=== PATIENT | male | born 1955 | race Caucasian/White ===

== ENCOUNTER 2017-07-18 14:45 | Emergency (ER) | payer OTHER ==
[~2017-07-18] VITALS: Ht 198.1 cm; Wt 90.7 kg
[~2017-07-18 14:45] MED LIST: IBUP800 PO; OXYACE5T PO; PROM25 PO; Percocet 10-321 EACH PO; Percocet 5-3251 EACH PO
[2017-07-18] MEDS ORDERED: THERAPEUTIC-M1 EAC3 PO (14:55)
[2017-07-18] MEDS ORDERED: Norco 5-325 Ta1 EACH PO (15:59)
== END 2017-07-18 16:06 | disposition home or self-care (01) ==
LOC: ER 14:45
DX: S70.11XA Contusion of right thigh, initial encounter (principal); Z88.1 Allergy status to other antibiotic agents; Z88.0 Allergy status to penicillin; F17.200 Nicotine dependence, unspecified, uncomplicated; W55.12XA Struck by horse, initial encounter
CPT/HCPCS: 73502; 73552; 99283

== ENCOUNTER 2017-08-03 11:30 | Emergency (ER) | payer OTHER ==
[~2017-08-03] VITALS: Ht 190.5 cm; Wt 90.7 kg
[~2017-08-03 11:30] MED LIST changes: +Norco 5-325 Ta1 EACH PO; +THERAPEUTIC-M1 EAC3 PO
[2017-08-03] MEDS ORDERED: CIPRO500 MG PO (13:05)
[2017-08-03] MEDS ORDERED: Norco 5-325 Ta1 EACH PO (13:05)
[2017-08-03] MEDS ORDERED: Crutch1 EACH MISC (13:05)
== END 2017-08-03 13:15 | disposition home or self-care (01) ==
LOC: ER 11:30
DX: M79.671 Pain in right foot (principal); Z88.0 Allergy status to penicillin; Z88.8 Allergy status to other drugs, medicaments and biological substances; F17.200 Nicotine dependence, unspecified, uncomplicated
CPT/HCPCS: 73630; 99283

== ENCOUNTER 2017-08-12 10:33 | Emergency (ER) | payer OTHER ==
[~2017-08-12] VITALS: Ht 190.5 cm; Wt 90.7 kg
[~2017-08-12 10:33] MED LIST changes: +CIPRO500 MG PO; +Crutch1 EACH MISC
[2017-08-12] MEDS ORDERED: Prednisone20 MG PO (11:47)
[2017-08-12] MEDS ORDERED: TIOT18 INH (11:47)
[2017-08-12] MEDS ORDERED: BENZ100A PO (11:47)
[2017-08-12] MEDS ORDERED: Flonase 0.05% N16 GM (11:47)
== END 2017-08-12 11:57 | disposition home or self-care (01) ==
LOC: ER 10:33
DX: R05 Cough (principal); Z88.0 Allergy status to penicillin; Z88.8 Allergy status to other drugs, medicaments and biological substances; Z79.2 Long term (current) use of antibiotics; F17.290 Nicotine dependence, other tobacco product, uncomplicated
CPT/HCPCS: 71046; 94640; 99283

== ENCOUNTER 2017-11-26 16:46 | Emergency (ER) | payer OTHER ==
[~2017-11-26] VITALS: Ht 188 cm; Wt 90.7 kg
[~2017-11-26 16:46] MED LIST changes: +BENZ100A PO; +Flonase 0.05% N16 GM; +Prednisone20 MG PO; +TIOT18 INH
[2017-11-26] MEDS ORDERED: Keflex500 MG PO (18:11)
[2017-11-26] MEDS ORDERED: Bactrim Ds Tab1 EACH PO (18:11)
== END 2017-11-26 18:25 | disposition home or self-care (01) ==
LOC: ER 16:46
DX: L03.114 Cellulitis of left upper limb (principal); L03.113 Cellulitis of right upper limb; F17.200 Nicotine dependence, unspecified, uncomplicated; Z88.1 Allergy status to other antibiotic agents; Z88.0 Allergy status to penicillin; Z79.899 Other long term (current) drug therapy
CPT/HCPCS: 99282

== ENCOUNTER 2018-06-07 13:50 | Emergency (ER) | payer OTHER ==
[~2018-06-07] VITALS: Ht 188 cm; Wt 93.0 kg
[~2018-06-07 13:50] MED LIST changes: +Bactrim Ds Tab1 EACH PO; +Keflex500 MG PO
[2018-06-07 14:43] LABS: BASOPHILS ABSOLUTE AUTO 0.03 K/mm3 (0.00-0.23); BASOPHILS PERCENT AUTO 1 % (0-2); EOSINOPHILS ABSOLUTE AUTO 0.13 K/mm3 (0.00-0.68); EOSINOPHILS PERCENT AUTO 2 % (0-6); Hematocrit 40.1 % (37.0-53.0); Hemoglobin 13.2 g/dL (13.5-17.5); IMMATURE GRAN ABSOLUTE AUTO 0.01 K/mm3 (0.00-0.10); IMMATURE GRAN PERCENT AUTO 0 % (0-1); LYMPHOCYTES ABSOLUTE AUTO 0.97 K/mm3 (0.84-5.20); LYMPHOCYTES PERCENT AUTO 17 % (21-46); MONOCYTES ABSOLUTE AUTO 0.61 K/mm3 (0.16-1.47); MONOCYTES PERCENT AUTO 11 % (4-13); Mean Corpuscular HGB 28.8 pg (26.0-34.0); Mean Corpuscular HGB Conc 32.9 g/dL (31.5-36.5); Mean Corpuscular Volume 87 fL (80-100); Mean Platelet Volume 8.9 fL (9.1-12.4); NEUTROPHILS ABSOLUTE AUTO 3.98 K/mm3 (1.96-9.15); NEUTROPHILS PERCENT AUTO 70 % (41-73); Platelet Count 257 K/mm3 (150-400); RDW Coefficient Variation 13.9 % (11.7-14.2); RDW Standard Deviation 44.7 fL (35.1-46.3); Red Blood Cell Count 4.59 M/mm3 (4.30-5.90); White Blood Cell Count 5.73 K/mm3 (4.00-11.30)
[2018-06-07 14:53] LABS: Alanine Aminotransfer (ALT/SGP 18 U/L (12-78); Albumin, Blood 3.5 g/dL (3.4-5.0); Albumin/Globulin Ratio 1.1 (0.8-1.8); Alk Phos 56 U/L (50-136); Anion Gap 8 mmol/L (6-16); Aspartate Aminotrans (AST/SGOT 16 U/L (12-37); Bilirubin, Total 0.5 mg/dL (0.1-1.0); Blood Urea Nitrogen 15 mg/dL (8-24); Bun/Creatinine Ratio 18.4 (12.0-20.0); CO2, Blood 25 mmol/L (21-32); Calcium, Blood 8.3 mg/dL (8.5-10.1); Chloride, Blood 108 mmol/L (98-108); Creatinine, Blood 0.82 mg/dL (0.60-1.20); Globulin, Blood 3.2 g/dL (2.2-4.0); Glomerular Filtration Rate >60 (60-); Glucose, Blood 105 mg/dL (70-99); Potassium, Blood 3.6 mmol/L (3.5-5.5); Sodium, Blood 141 mmol/L (136-145); Total Protein, Blood 6.7 g/dL (6.4-8.2); Troponin I <0.015 ng/mL (0.000-0.040)
[2018-06-07 15:03] LABS: Influenza A Negative (NEGATIVE); Influenza B Negative (NEGATIVE)
[2018-06-07] MEDS ORDERED: Norco 5-325 Ta1 EACH PO (15:41)
== END 2018-06-07 15:50 | disposition home or self-care (01) ==
LOC: ER 13:50
PROVIDERS: Physician Assistant
DX: B09 Unspecified viral infection characterized by skin and mucous membrane lesions (principal); F17.210 Nicotine dependence, cigarettes, uncomplicated
CPT/HCPCS: 71046; 80053; 84484; 85025; 87804; 93005; 93010; 99284-25

== ENCOUNTER → 2018-06-30 | Outpatient (CLI) | payer OTHER ==
[2018-06-30 15:15] LABS: CHOL/HDL RATIO 4.3; Cholesterol 230 mg/dL (50-200); HDL Cholesterol 53 mg/dL (>39); LDL/HDL RATIO 3.1; Low Density Lipoprotein Chol 165 mg/dL (0-110); Triglycerides 59 mg/dL (30-160); Very Low Density Lipoprot Chol 11 mg/dL (6-32)
== END | disposition home or self-care (01) ==
LOC: LAB SHORT 14:51 → LAB 14:51
PROVIDERS: Physician Assistant
DX: E78.5 Hyperlipidemia, unspecified (principal)
CPT/HCPCS: 80061

== ENCOUNTER 2018-08-01 12:58 | Day surgery (SDC) | payer MEDICAID ==
[~2018-08-01 12:58] MED LIST changes: +Cleocin HCl150 MG PO; +Monodox100 MG PO
--- NOTE | 2018-08-01 20:03 | NUR ---
PT VERBALIZES UNDERSTANDING TO FOLLOW UP WITH INFUSION IN ER TONIGHT.
[2018-08-02] MEDS ORDERED: THERA1 EACH PO (08:17)
[2018-08-02] MEDS ORDERED: ATOR10 PO (08:17)
[2018-08-02] MEDS ORDERED: Cleocin HCl300 MG PO (23:46)
== END 2018-08-01 22:54 | disposition home or self-care (01) ==
LOC: ATC 12:58
DX: L03.90 Cellulitis, unspecified (principal)

== ENCOUNTER 2018-08-01 22:46 | Emergency (ER) | payer MEDICAID ==
[~2018-08-01] VITALS: Ht 188 cm; Wt 93.0 kg
[2018-08-02] MEDS ORDERED: THERA1 EACH PO (08:17)
[2018-08-02] MEDS ORDERED: ATOR10 PO (08:17)
[2018-08-02] MEDS ORDERED: Cleocin HCl300 MG PO (23:46)
== END 2018-08-02 | disposition home or self-care (01) ==
LOC: ER 22:46
DX: L03.116 Cellulitis of left lower limb (principal); Z88.0 Allergy status to penicillin; Z88.8 Allergy status to other drugs, medicaments and biological substances

== ENCOUNTER 2018-08-02 07:43 | Day surgery (SDC) | payer MEDICAID ==
[2018-08-02] MEDS ORDERED: ATOR10 PO (08:17)
[2018-08-02] MEDS ORDERED: THERA1 EACH PO (08:17)
--- NOTE | 2018-08-02 15:56 | NUR ---
IV FLUSHES WELL, 2X2 GAUZE UNDER END CAPS/CLAMP AND OVER SITE AND WRAPPED LIGHTLY IN COBAN TO MAINTAIN PATENCY OF SITE. END CAPS X2 PLACED. PT VERBALIZES UNDERSTANDING TO GO TO [facility]
[2018-08-02] MEDS ORDERED: Cleocin HCl300 MG PO (23:46)
== END 2018-08-02 22:39 | disposition home or self-care (01) ==
LOC: ATC 07:43
DX: L03.90 Cellulitis, unspecified (principal)

== ENCOUNTER 2018-08-02 23:02 | Emergency (ER) | payer OTHER ==
[~2018-08-02] VITALS: Ht 188 cm; Wt 93.0 kg
[~2018-08-02 23:02] MED LIST changes: +ATOR10 PO; +THERA1 EACH PO
[2018-08-02] MEDS ORDERED: Cleocin HCl300 MG PO (23:46)
== END 2018-08-03 00:10 | disposition home or self-care (01) ==
LOC: ER 23:02
DX: L03.116 Cellulitis of left lower limb (principal); F17.200 Nicotine dependence, unspecified, uncomplicated; Z88.1 Allergy status to other antibiotic agents; Z88.0 Allergy status to penicillin; Z79.899 Other long term (current) drug therapy
CPT/HCPCS: 96365; 99281-25

== ENCOUNTER 2018-08-03 00:24 | Day surgery (SDC) | payer OTHER ==
[~2018-08-03 00:24] MED LIST changes: +Cleocin HCl300 MG PO
== END 2018-08-03 16:20 | disposition home or self-care (01) ==
LOC: ATC 00:24
DX: L03.90 Cellulitis, unspecified (principal)
CPT/HCPCS: 96365

== ENCOUNTER 2018-08-03 22:51 | Emergency (ER) | payer OTHER ==
[~2018-08-03] VITALS: Ht 188 cm; Wt 93.2 kg
== END 2018-08-03 23:59 | disposition home or self-care (01) ==
LOC: ER 22:51
DX: L03.116 Cellulitis of left lower limb (principal); F17.290 Nicotine dependence, other tobacco product, uncomplicated; Z88.0 Allergy status to penicillin; Z88.8 Allergy status to other drugs, medicaments and biological substances; Z79.899 Other long term (current) drug therapy
CPT/HCPCS: 96365; 99281-25

== ENCOUNTER 2018-08-04 00:08 | Day surgery (SDC) | payer OTHER | END 2018-08-04 08:31 | disposition home or self-care (01) | LOC: ATC 00:08 | DX: L03.90 Cellulitis, unspecified (principal) | CPT/HCPCS: 96365 ==

== ENCOUNTER 2018-10-05 07:00 | Day surgery (SDC) | payer OTHER ==
[~2018-10-05] VITALS: Ht 188 cm; Wt 91.0 kg
--- NOTE | 2018-10-05 07:35 | NUR ---
Ambulatory in Day Surgery. Patient states colon prep results clear. History, Chart, Medications and Allergies reviewed before start of procedure. Lungs clear T/O to Auscultation. Patient confirms NPO status and agrees with scheduled surgery. Pre-Op teaching done. Pt verbalizes understanding. Patient States Post-Procedure ride home has been arranged.
--- NOTE | 2018-10-05 08:00 | NUR ---
10/05/18 0800 Fidle San History, Chart, Medications and Allergies reviewed before start of procedure.MONITOR INTACT WITH CONTINUOUS PULSE OXIMETRY AND INTERMITTENT BP.3-LEAD EKG REVIEWED WITH PHYSICIAN PRIOR TO START OF PROCEDURE.O2 VIA N/C INTACT THROUGHOUT SEDATION/PROCEDURE. Patient confirms NPO status and agrees with scheduled surgery.PATIENT DETERMINED TO BE ASA APPROPRIATE FOR PROPOFOL SEDATION PRIOR TO START OF PROCEDURE BY DR. BEEBE.
--- NOTE | 2018-10-05 08:43 | NUR ---
REPORT GIVEN TO ADRIANNE MACKENZIE.
--- NOTE | 2018-10-05 09:07 | NUR ---
Patient up to Ambulate independently. Gait steady. Discharge instructions reviewed with patient. Patient verbalizes understanding. Copy given to patient to take home. Patient States Post-Procedure ride home has been arranged. Discharged via wheelchair to private car for ride home. ALL BELONGINGS RETUNED TO PATIENT.
== END 2018-10-05 23:03 | disposition home or self-care (01) ==
LOC: ORSCMMR 07:00 → ORD 08:00 → ORSCMMR 23:03
PROVIDERS: Internal Medicine Gastroenterology
PROC: 0DBN8ZX Excision of Sigmoid Colon, Via Natural or Artificial Opening Endoscopic, Diagnostic (ICD-10-PCS; principal; 2018-10-05 08:00)
DX: Z12.11 Encounter for screening for malignant neoplasm of colon (principal); K63.5 Polyp of colon; D12.5 Benign neoplasm of sigmoid colon; E78.00 Pure hypercholesterolemia, unspecified; F17.210 Nicotine dependence, cigarettes, uncomplicated; Z79.899 Other long term (current) drug therapy
CPT/HCPCS: 88305; J2704; J7120

== ENCOUNTER 2018-12-10 18:23 | Emergency (ER) | payer OTHER ==
[~2018-12-10] VITALS: Ht 188 cm; Wt 90.7 kg
== END 2018-12-10 20:00 | disposition home or self-care (01) ==
LOC: ER 18:23
DX: S83.91XA Sprain of unspecified site of right knee, initial encounter (principal); S93.601A Unspecified sprain of right foot, initial encounter; F17.210 Nicotine dependence, cigarettes, uncomplicated; Z88.0 Allergy status to penicillin; Z88.8 Allergy status to other drugs, medicaments and biological substances; Z79.899 Other long term (current) drug therapy; X58.XXXA Exposure to other specified factors, initial encounter
CPT/HCPCS: 73562-RT; 73620; 99283-25

== ENCOUNTER 2018-12-15 11:27 | Emergency (ER) | payer OTHER ==
[~2018-12-15] VITALS: Ht 188 cm; Wt 90.7 kg
[2018-12-15 11:50] LABS: BASOPHILS ABSOLUTE AUTO 0.06 K/mm3 (0.00-0.23); BASOPHILS PERCENT AUTO 1 % (0-2); EOSINOPHILS ABSOLUTE AUTO 0.13 K/mm3 (0.00-0.68); EOSINOPHILS PERCENT AUTO 2 % (0-6); Hematocrit 40.4 % (37.0-53.0); Hemoglobin 13.6 g/dL (13.5-17.5); IMMATURE GRAN ABSOLUTE AUTO 0.03 K/mm3 (0.00-0.10); IMMATURE GRAN PERCENT AUTO 0 % (0-1); LYMPHOCYTES ABSOLUTE AUTO 2.15 K/mm3 (0.84-5.20); LYMPHOCYTES PERCENT AUTO 25 % (21-46); MONOCYTES ABSOLUTE AUTO 0.64 K/mm3 (0.16-1.47); MONOCYTES PERCENT AUTO 7 % (4-13); Mean Corpuscular HGB 29.2 pg (26.0-34.0); Mean Corpuscular HGB Conc 33.7 g/dL (31.5-36.5); Mean Corpuscular Volume 87 fL (80-100); Mean Platelet Volume 8.9 fL (9.1-12.4); NEUTROPHILS ABSOLUTE AUTO 5.64 K/mm3 (1.96-9.15); NEUTROPHILS PERCENT AUTO 65 % (41-73); Platelet Count 323 K/mm3 (150-400); RDW Coefficient Variation 13.9 % (11.7-14.2); RDW Standard Deviation 44.1 fL (35.1-46.3); Red Blood Cell Count 4.65 M/mm3 (4.30-5.90); White Blood Cell Count 8.65 K/mm3 (4.00-11.30)
[2018-12-15 12:05] LABS: Alanine Aminotransfer (ALT/SGP 23 U/L (12-78); Albumin, Blood 3.8 g/dL (3.4-5.0); Albumin/Globulin Ratio 1.1 (0.8-1.8); Alk Phos 72 U/L (50-136); Anion Gap 4 mmol/L (6-16); Aspartate Aminotrans (AST/SGOT 11 U/L (12-37); Bilirubin, Total 0.6 mg/dL (0.1-1.0); Blood Urea Nitrogen 13 mg/dL (8-24); Bun/Creatinine Ratio 18.1 (12.0-20.0); CO2, Blood 28 mmol/L (21-32); Calcium, Blood 8.7 mg/dL (8.5-10.1); Chloride, Blood 109 mmol/L (98-108); Creatinine, Blood 0.72 mg/dL (0.60-1.20); Globulin, Blood 3.6 g/dL (2.2-4.0); Glomerular Filtration Rate >60 (60-); Glucose, Blood 96 mg/dL (70-99); Potassium, Blood 4.1 mmol/L (3.5-5.5); Sodium, Blood 141 mmol/L (136-145); Total Protein, Blood 7.4 g/dL (6.4-8.2); Troponin I <0.015 ng/mL (0.000-0.040)
== END 2018-12-15 13:34 | disposition home or self-care (01) ==
LOC: ER 11:27
PROVIDERS: Emergency Medicine
DX: R07.9 Chest pain, unspecified (principal); R51 Headache; R47.81 Slurred speech; F17.290 Nicotine dependence, other tobacco product, uncomplicated; Z88.0 Allergy status to penicillin; Z88.8 Allergy status to other drugs, medicaments and biological substances; Z79.899 Other long term (current) drug therapy
CPT/HCPCS: 36415; 70450; 71046; 80053; 83690; 83880; 84484; 85025; 93005; 93010; 99284-25

== ENCOUNTER → 2020-03-29 | Outpatient (CLI) | payer OTHER ==
[2020-03-29 14:15] LABS: CHOL/HDL RATIO 3.6; Cholesterol 218 mg/dL (50-200); HDL Cholesterol 60 mg/dL (>39); LDL/HDL RATIO 2.4; Low Density Lipoprotein Chol 145 mg/dL (0-110); Triglycerides 63 mg/dL (30-160); Very Low Density Lipoprot Chol 12 mg/dL (6-32)
== END | disposition home or self-care (01) ==
LOC: LAB SHORT 09:20 → LAB 09:20
PROVIDERS: Family Medicine
DX: E78.5 Hyperlipidemia, unspecified (principal)
CPT/HCPCS: 80061

== ENCOUNTER 2021-02-20 18:15 | Emergency (ER) | payer OTHER ==
[~2021-02-20] VITALS: Ht 190.5 cm; Wt 99.8 kg
[2021-02-20] MEDS ORDERED: CEPH500 PO (19:52)
== END 2021-02-20 20:06 | disposition home or self-care (01) ==
LOC: ER 18:15
DX: S61.532A Puncture wound without foreign body of left wrist, initial encounter (principal); F17.210 Nicotine dependence, cigarettes, uncomplicated; Z23 Encounter for immunization; Z88.0 Allergy status to penicillin; Z88.1 Allergy status to other antibiotic agents; W01.119A Fall on same level from slipping, tripping and stumbling with subsequent striking against unspecified sharp object, initial encounter
CPT/HCPCS: 73110; 90471; 90714; 96372; 99283-25; J1885

== ENCOUNTER 2022-04-23 19:08 | Emergency (ER) | payer BC, OTHER ==
[~2022-04-23] VITALS: Ht 188 cm; Wt 97.5 kg
[~2022-04-23 19:08] MED LIST changes: +CEPH500 PO
[2022-04-23 20:01] LABS: BASOPHILS ABSOLUTE AUTO 0.07 K/mm3 (0.00-0.23); BASOPHILS PERCENT AUTO 1 % (0-2); EOSINOPHILS ABSOLUTE AUTO 0.21 K/mm3 (0.00-0.68); EOSINOPHILS PERCENT AUTO 3 % (0-6); Hematocrit 36.6 % (37.0-53.0); Hemoglobin 12.8 g/dL (13.5-17.5); IMMATURE GRAN ABSOLUTE AUTO 0.02 K/mm3 (0.00-0.10); IMMATURE GRAN PERCENT AUTO 0 % (0-1); LYMPHOCYTES ABSOLUTE AUTO 2.92 K/mm3 (0.84-5.20); LYMPHOCYTES PERCENT AUTO 37 % (21-46); MONOCYTES ABSOLUTE AUTO 0.92 K/mm3 (0.16-1.47); MONOCYTES PERCENT AUTO 12 % (4-13); Mean Corpuscular HGB 29.9 pg (26.0-34.0); Mean Corpuscular Volume 86 fL (80-100); Mean Platelet Volume 8.8 fL (9.1-12.4); NEUTROPHILS ABSOLUTE AUTO 3.77 K/mm3 (1.96-9.15); NEUTROPHILS PERCENT AUTO 48 % (41-73); Platelet Count 283 K/mm3 (150-400); RDW Coefficient Variation 13.9 % (11.7-14.2); RDW Standard Deviation 43.1 fL (35.1-46.3); Red Blood Cell Count 4.28 M/mm3 (4.30-5.90); White Blood Cell Count 7.91 K/mm3 (4.00-11.30)
[2022-04-23 20:24] LABS: Albumin, Blood 3.8 g/dL (3.4-5.0); Albumin/Globulin Ratio 1.2 (0.8-1.8); Bilirubin, Total 0.2 mg/dL (0.1-1.0); Bun/Creatinine Ratio 19.9 (12.0-20.0); Calcium, Blood 9.2 mg/dL (8.5-10.1); Creatinine, Blood 0.85 mg/dL (0.60-1.20); Globulin, Blood 3.1 g/dL (2.2-4.0); Total Protein, Blood 6.9 g/dL (6.4-8.2)
[2022-04-23 21:05] LABS: Source, Urine Clean Catch
[2022-04-23 21:10] LABS: Appearance, Urine Clear (Clear); Bilirubin, Urine Neg (Neg); Blood, Urine Neg (Neg); Color, Urine Yellow (P-Yellow); Glucose Qualitative, Urine Neg (Neg); Ketones, Urine Neg (Neg); Leukocyte Esterase, Urine Neg (Neg); Nitrite, Urine Neg (Neg); Protein, Urine Neg (Neg); Specific Gravity, Urine 1.015 (1.003-1.022); Urobilinogen, Urine NORM (Normal)
== END 2022-04-24 01:59 | disposition home or self-care (01) ==
LOC: ER 19:08
PROVIDERS: Student in an Organized Health Care Education/Training Program
DX: K40.90 Unilateral inguinal hernia, without obstruction or gangrene, not specified as recurrent (principal); F17.210 Nicotine dependence, cigarettes, uncomplicated; Z88.1 Allergy status to other antibiotic agents; Z88.0 Allergy status to penicillin; Z79.899 Other long term (current) drug therapy
CPT/HCPCS: 36415; 74177; 80053; 81003; 85025; Q9967

== ENCOUNTER → 2022-07-16 | Outpatient (CLI) | payer BC, OTHER ==
[~2022-07-16] MED LIST changes: +ASPI81CH PO; +Budeprion Xl300 MG PO; +COMBIVENT RESPIM4 G1 INH; +EZET10 PO; +FISH OIL 1,2001 EAC7 PO; +MELO7.5 PO; +MULVITA PO; +PSYLLIUM FIBER0.4 GM PO; +ZOCOR20 MG PO
[2022-07-16 12:35] LABS: BASOPHILS ABSOLUTE AUTO 0.05 K/mm3 (0.00-0.23); BASOPHILS PERCENT AUTO 0 % (0-2); EOSINOPHILS ABSOLUTE AUTO 0.07 K/mm3 (0.00-0.68); EOSINOPHILS PERCENT AUTO 1 % (0-6); Hematocrit 43.9 % (37.0-53.0); Hemoglobin 14.9 g/dL (13.5-17.5); IMMATURE GRAN ABSOLUTE AUTO 0.05 K/mm3 (0.00-0.10); IMMATURE GRAN PERCENT AUTO 0 % (0-1); LYMPHOCYTES ABSOLUTE AUTO 1.94 K/mm3 (0.84-5.20); LYMPHOCYTES PERCENT AUTO 17 % (21-46); MONOCYTES ABSOLUTE AUTO 1.12 K/mm3 (0.16-1.47); MONOCYTES PERCENT AUTO 10 % (4-13); Mean Corpuscular HGB 29.2 pg (26.0-34.0); Mean Corpuscular HGB Conc 33.9 g/dL (31.5-36.5); Mean Corpuscular Volume 86 fL (80-100); Mean Platelet Volume 8.9 fL (9.1-12.4); NEUTROPHILS ABSOLUTE AUTO 8.25 K/mm3 (1.96-9.15); NEUTROPHILS PERCENT AUTO 72 % (41-73); Platelet Count 344 K/mm3 (150-400); RDW Coefficient Variation 13.1 % (11.7-14.2); RDW Standard Deviation 41.1 fL (35.1-46.3); Red Blood Cell Count 5.11 M/mm3 (4.30-5.90); White Blood Cell Count 11.48 K/mm3 (4.00-11.30)
[2022-07-16 12:41] LABS: Bun/Creatinine Ratio 22.4 (12.0-20.0); Calcium, Blood 9.2 mg/dL (8.5-10.1); Creatinine, Blood 0.85 mg/dL (0.60-1.20); Potassium, Blood 4.4 mmol/L (3.5-5.5)
== END | disposition home or self-care (01) ==
LOC: LAB SHORT 11:11 → LAB 11:11
PROVIDERS: Surgery
DX: Z01.812 Encounter for preprocedural laboratory examination (principal)
CPT/HCPCS: 36415; 80048; 85025

== ENCOUNTER 2022-07-19 05:53 | Day surgery (SDC) | payer BC, OTHER ==
[~2022-07-19] VITALS: Ht 188 cm; Wt 94.2 kg
--- NOTE | 2022-07-19 11:05 | NUR ---
DISCHARGE NOTE PT A&OX4, VSS, NO CONCERNS. Discharge instructions reviewed with patient. Patient verbalizes understanding. Copy given to patient to take home. Dressing to procedure site clean, dry, intact with no visible drainage, swelling, erythema or bruising noted. Discharged via wheelchair to private car for ride home.
--- NOTE | 2022-07-23 09:06 | NUR ---
07/23/22 0906 Zora Hubbard VERIFICATIONS: EDIT CHART.
== END 2022-07-19 11:09 | disposition home or self-care (01) ==
LOC: ORSCMMR 05:53 → ORD 07:30 → ORSCMMR 11:09
PROVIDERS: Surgery
PROC: 0YU54JZ Supplement Right Inguinal Region with Synthetic Substitute, Percutaneous Endoscopic Approach (ICD-10-PCS; principal; 2022-07-19 07:30)
PROC: 3E0M45Z Introduction of Adhesion Barrier into Peritoneal Cavity, Percutaneous Endoscopic Approach (ICD-10-PCS; principal; 2022-07-19 07:30)
PROC: 8E0W4CZ Robotic Assisted Procedure of Trunk Region, Percutaneous Endoscopic Approach (ICD-10-PCS; principal; 2022-07-19 07:30)
DX: K40.90 Unilateral inguinal hernia, without obstruction or gangrene, not specified as recurrent (principal); D17.6 Benign lipomatous neoplasm of spermatic cord; F17.210 Nicotine dependence, cigarettes, uncomplicated; E78.5 Hyperlipidemia, unspecified; Z79.899 Other long term (current) drug therapy; F41.8 Other specified anxiety disorders; Z79.82 Long term (current) use of aspirin
CPT/HCPCS: 49650; S2900; A9270; C1781; J1100; J1885; J2250; J2405; J2704; J2795; J3010; J7120

== ENCOUNTER → 2023-05-12 | Outpatient (CLI) | payer BC, OTHER ==
[2023-05-12 19:53] LABS: BASOPHILS ABSOLUTE AUTO 0.06 K/mm3 (0.00-0.23); BASOPHILS PERCENT AUTO 1 % (0-2); EOSINOPHILS ABSOLUTE AUTO 0.19 K/mm3 (0.00-0.68); EOSINOPHILS PERCENT AUTO 3 % (0-6); Hematocrit 42.1 % (37.0-53.0); Hemoglobin 14.3 g/dL (13.5-17.5); IMMATURE GRAN ABSOLUTE AUTO 0.03 K/mm3 (0.00-0.10); IMMATURE GRAN PERCENT AUTO 0 % (0-1); LYMPHOCYTES ABSOLUTE AUTO 2.68 K/mm3 (0.84-5.20); LYMPHOCYTES PERCENT AUTO 35 % (21-46); MONOCYTES ABSOLUTE AUTO 0.73 K/mm3 (0.16-1.47); MONOCYTES PERCENT AUTO 10 % (4-13); Mean Corpuscular HGB 29.4 pg (26.0-34.0); Mean Corpuscular Volume 87 fL (80-100); Mean Platelet Volume 9.4 fL (9.1-12.4); NEUTROPHILS ABSOLUTE AUTO 3.89 K/mm3 (1.96-9.15); NEUTROPHILS PERCENT AUTO 51 % (41-73); Platelet Count 328 K/mm3 (150-400); RDW Coefficient Variation 14.3 % (11.7-14.2); RDW Standard Deviation 45.4 fL (35.1-46.3); Red Blood Cell Count 4.86 M/mm3 (4.30-5.90); White Blood Cell Count 7.58 K/mm3 (4.00-11.30)
[2023-05-12 20:08] LABS: CHOL/HDL RATIO 3.2; Cholesterol 162 mg/dL (50-200); HDL Cholesterol 51 mg/dL (>39); LDL/HDL RATIO 1.9; Low Density Lipoprotein Chol 97 mg/dL (0-110); Prostate Specific Antigen 0.608 ng/mL (0.000-4.000); Triglycerides 72 mg/dL (30-160); Very Low Density Lipoprot Chol 14 mg/dL (6-32)
[2023-05-14 09:11] LABS: A/G RATIO 2.1 (1.2-2.2); ALKALINE PHOSPHATASE, S 72 IU/L (44-121); ALT (SGPT) 17 IU/L (0-44); AST (SGOT) 17 IU/L (0-40); BILIRUBIN, TOTAL <0.2 mg/dL (0.0-1.2); BUN 15 mg/dL (8-27); BUN/CREATININE RATIO 18 (10-24); CALCIUM, SERUM 9.2 mg/dL (8.6-10.2); CARBON DIOXIDE, TOTAL 18 mmol/L (20-29); CHLORIDE, SERUM 105 mmol/L (96-106); CREATININE, SERUM 0.83 mg/dL (0.76-1.27); GLOBULIN, TOTAL 2.2 g/dL (1.5-4.5); GLUCOSE, SERUM 96 mg/dL (70-99); PROTEIN, TOTAL, SERUM 6.8 g/dL (6.0-8.5); SODIUM, SERUM 140 mmol/L (134-144)
== END | disposition home or self-care (01) ==
LOC: LAB SHORT 18:58 → LAB EV 18:58
PROVIDERS: Family Medicine
DX: Z12.5 Encounter for screening for malignant neoplasm of prostate (principal); E78.5 Hyperlipidemia, unspecified
CPT/HCPCS: 80053; 80061; 84443; 85025; G0103

== ENCOUNTER 2024-07-07 08:18 | Day surgery (SDC) | payer OTHER ==
[~2024-07-07] VITALS: Ht 188 cm; Wt 93.8 kg
[~2024-07-07 08:18] MED LIST changes: +Lactated Ringer's 1,000 ML IV ONE
[2024-07-07] MEDS ORDERED: EPINEPhrine HCl 1 MG/ML 1ML Amp ONE (08:50)
[2024-07-07] MEDS ORDERED: ACET500 PO (09:02)
[2024-07-07] MEDS ORDERED: Lactated Ringer's 1,000 ML IV ONE ×2 (09:10→10:07)
--- NOTE | 2024-07-07 09:15 | NUR ---
07/07/24 0915 EMILI BARRON IN WITH PT.
[2024-07-07] MEDS ORDERED: Clindamycin 900mg in D5W 50ML 50 ML IV ONE (09:36)
[2024-07-07] MEDS ORDERED: FentaNYL Citrate 50 MCG/ML 2 ML Injection ONE (10:08)
[2024-07-07] MEDS ORDERED: propofoL 20 ML IV ONE (10:08)
[2024-07-07] MEDS ORDERED: Ketorolac Tromethamine 30mg Vial ONE (10:22)
[2024-07-07] MEDS ORDERED: Dexamethasone Sod Phos 10 MG/ML 1ML VIAL ONE (10:22)
[2024-07-07] MEDS ORDERED: Ondansetron HCl 2 MG / ML 2ML Vial ONE (10:22)
[2024-07-07] MEDS ORDERED: Lidocaine 2%-Epineph 1:100000 20 ML MDV INJ ONE (10:33)
[2024-07-07] MEDS ORDERED: Phenylephrine HCl 10mg/ml 1 ml Vial ONE (10:46)
--- NOTE | 2024-07-07 11:16 | NUR ---
07/07/24 1116 Puja Tirado PT ARRIVES TO PACU ASLEEP, NOT RESPONDING TO VERBAL STIMULI. AT 1114, PT STARTS TO OPEN EYES SPONTANEOUSLY & MOVING ARMS. O2 REMOVED. PT ANSWERS QUESTIONS APPROPRIATELY, DENIES PAIN/NAUSEA. VSS, ON RA. NO VISIBLE SIGNS OF DISTRESS NOTED.
--- NOTE | 2024-07-07 11:29 | NUR ---
07/07/24 1129 Puja Tirado PT TRANSFERS TO SDU ON RA, VSS. PT STATES HE'S HAVING PAIN TO L KNEE, ABOUT 6/10 & TOLERABLE AT THIS TIME. PT DENIES NAUSEA. NO VISIBLE SIGNS OF DISTRESS NOTED.
[2024-07-07] MEDS ORDERED: OxyCODONE HCL 5 MG TAB ONE (11:59)
[2024-07-07 12:12] VITALS: BP 125/87
== END 2024-07-07 12:35 | disposition home or self-care (01) ==
LOC: ORSCSDS 08:18
PROVIDERS: Orthopaedic Surgery
PROC: 0SBD4ZZ Excision of Left Knee Joint, Percutaneous Endoscopic Approach (ICD-10-PCS; principal; 2024-07-07 10:15)
DX: M23.222 Derangement of posterior horn of medial meniscus due to old tear or injury, left knee (principal); M94.262 Chondromalacia, left knee; E78.5 Hyperlipidemia, unspecified; Z79.82 Long term (current) use of aspirin; Z79.899 Other long term (current) drug therapy; Z87.891 Personal history of nicotine dependence
CPT/HCPCS: A9270; J0171; J1100; J1885; J2371; J2405; J2704; J3010; J7120

== ENCOUNTER 2024-11-06 17:03 | Emergency (ER) | payer OTHER ==
[~2024-11-06] VITALS: Ht 190.5 cm; Wt 97.5 kg
[~2024-11-06 17:03] MED LIST changes: +ACET500 PO; -Lactated Ringer's 1,000 ML IV ONE
[2024-11-06 18:00] LABS: BASOPHILS ABSOLUTE AUTO 0.06 K/mm3 (0.00-0.23); BASOPHILS PERCENT AUTO 1 % (0-2); EOSINOPHILS ABSOLUTE AUTO 0.16 K/mm3 (0.00-0.68); EOSINOPHILS PERCENT AUTO 3 % (0-6); Hematocrit 37.5 % (37.0-53.0); Hemoglobin 12.5 g/dL (13.5-17.5); IMMATURE GRAN ABSOLUTE AUTO 0.02 K/mm3 (0.00-0.10); IMMATURE GRAN PERCENT AUTO 0 % (0-1); LYMPHOCYTES ABSOLUTE AUTO 2.82 K/mm3 (0.84-5.20); LYMPHOCYTES PERCENT AUTO 46 % (21-46); MONOCYTES ABSOLUTE AUTO 0.57 K/mm3 (0.16-1.47); MONOCYTES PERCENT AUTO 9 % (4-13); Mean Corpuscular HGB Conc 33.3 g/dL (31.5-36.5); Mean Corpuscular Volume 86 fL (80-100); NEUTROPHILS ABSOLUTE AUTO 2.50 K/mm3 (1.96-9.15); NEUTROPHILS PERCENT AUTO 41 % (41-73); NRBC ABSOLUTE 0.00 K/mm3 (0.00-0.02); NRBC Auto 0.0 /100 WBC (0.0-0.2); Platelet Count 260 K/mm3 (150-400); RDW Coefficient Variation 13.4 % (11.7-14.2); RDW Standard Deviation 42.7 fL (35.1-46.3)
[2024-11-06 18:33] LABS: Alanine Aminotransfer (ALT/SGP 27.0 U/L (12-78); Albumin, Blood 4.0 g/dL (3.4-5.0); Albumin/Globulin Ratio 1.2 (0.8-1.8); Anion Gap 7.0 mmol/L (3-11); Aspartate Aminotrans (AST/SGOT 16.0 U/L (12-37); Bilirubin, Total 0.3 mg/dL (0.1-1.0); Blood Urea Nitrogen 13.0 mg/dL (8-24); CO2, Blood 27.0 mmol/L (21-32); Calcium, Blood 9.0 mg/dL (8.5-10.1); Chloride, Blood 107.0 mmol/L (98-108); Creatinine, Blood 0.93 mg/dL (0.60-1.20); Globulin, Blood 3.2 g/dL (2.2-4.0); Glucose, Blood 97.0 mg/dL (70-99); Magnesium, Blood 2.1 mg/dL (1.6-2.4); Potassium, Blood 3.8 mmol/L (3.5-5.5); Sodium, Blood 137.0 mmol/L (136-145); Total Protein, Blood 7.2 g/dL (6.4-8.2)
[2024-11-06 19:24] LABS: Source, Urine Clean Catch
[2024-11-06 19:38] LABS: Bilirubin, Urine Neg (Neg); Glucose Qualitative, Urine Neg (Neg); Ketones, Urine Neg (Neg); Leukocyte Esterase, Urine Neg (Neg); Protein, Urine Neg (Neg); Specific Gravity, Urine 1.005 (1.003-1.022); Urobilinogen, Urine NORM (Normal)
[2024-11-06 19:55] LABS: Color, Urine Pale Yellow (P-Yellow)
[2024-11-06 20:11] VITALS: BP 136/96
[2024-11-06] MEDS ORDERED: MIRALAX17 GM PO (20:22)
[2024-11-06] MEDS ORDERED: ONDA4 PO (20:22)
[2024-11-06] MEDS ORDERED: DICY20 PO (20:22)
== END 2024-11-06 20:35 | disposition home or self-care (01) ==
LOC: ER 17:03
PROVIDERS: Emergency Medicine
DX: K59.00 Constipation, unspecified (principal); Z88.0 Allergy status to penicillin; Z88.8 Allergy status to other drugs, medicaments and biological substances; Z79.899 Other long term (current) drug therapy; F17.200 Nicotine dependence, unspecified, uncomplicated
CPT/HCPCS: 74177; 80053; 81003; 83690; 83735; 85025; 99284-25; Q9967